=== PATIENT | female | born 1945 | race Caucasian/White ===

== ENCOUNTER 2024-06-14 13:13 | Outpatient (CLI) | payer MEDICARE | END 2024-06-14 13:14 | disposition home or self-care (01) | LOC: CSHULT 13:13 | PROVIDERS: ATTEND Family Medicine | DX: L98.492 Non-pressure chronic ulcer of skin of other sites with fat layer exposed (principal) | CPT/HCPCS: 93923 ==

== ENCOUNTER 2025-03-01 10:02 | Emergency (ER) | payer OTHER ==
[2025-03-01 10:37] LABS: #Basophils 0.03 10x3/uL (0.0-0.2); #Eosinophils 0.11 10x3/uL (0.0-0.5); #Monocytes 0.36 10x3/uL (0.0-1.1); #Neutrophils 3.63 10x3/uL (1.5-8.4); %Basophils 0.5 % (0.0-2.0); %Eosinophils 1.8 % (0.0-6.0); %Lymphocytes 31.6 % (18.0-47.0); %Monocytes 6.0 % (0.0-10.0); %Neutrophils 59.9 % (40.0-75.0); Hematocrit 41.8 % (34.9-44.5); Hemoglobin 13.9 g/dL (12.0-15.5); Mean Corpuscular Hemoglobin 29.2 pg (27.0-33.0); Mean Corpuscular Volume 87.8 fL (81.6-98.3); Platelet Count 168 10x3/uL (150-450); Red Blood Cell (RBC) Count 4.76 10x6/uL (3.90-5.03); White Blood Cell (WBC) Count 6.05 10x3/uL (3.5-10.5)
[2025-03-01 10:57] LABS: ALT (SGPT) Less than 7 U/L (Less than 34); AST (SGOT) 15 U/L (11-34); Albumin 3.7 g/dL (3.1-4.5); Alkaline Phosphatase 79 U/L (40-110); Anion Gap 12 mmol/L (10-20); BUN (Urea Nitrogen) 13 mg/dL (9.8-20.1); Bilirubin, Total 0.4 mg/dL (0.3-1.2); Calc. Creatinine Clearance 0 mL/min (70-130); Calcium 9.2 mg/dL (7.8-10.44); Carbon Dioxide 26 mmol/L (23-31); Chloride 103 mmol/L (98-107); Globulin 3.8 g/dL (2.4-3.5); Glucose 109 mg/dL (83-110); Lipase 25 U/L (8-78); Magnesium 2.1 mg/dL (1.6-2.6); Potassium 4.3 mmol/L (3.5-5.1); Sodium 137 mmol/L (136-145)
[2025-03-01] MEDS ORDERED: Iopamidol 300 61% 100 ML VIAL FS ONE ×2 (11:05→11:07)
[2025-03-01 11:52] LABS: Glucose, Urine (Dipstick) Normal (Negative); Leukocyte Negative (Negative); Protein, Urine (Dipstick) 15 mg/dl (Neg-Trace); Specific Gravity, Urine 1.010 (1.005-1.030)
[2025-03-01 12:11] LABS: Bacteria/HPF 1+ HPF (None Seen); CAUTI Indications for Culture Alt mental st,lethar; RBC/HPF None Seen HPF (0-3); Urine Culture Reflex No No; WBC/HPF 0-3 HPF (0-3)
[2025-03-01] MEDS ORDERED: Ketorolac Tromethamine 30 MG (1 mL) VIAL ONE (12:45)
== END 2025-03-01 15:44 | disposition home or self-care (01) ==
LOC: CSHERS 10:02
DX: K76.9 Liver disease, unspecified (principal); A31.0 Pulmonary mycobacterial infection; F17.210 Nicotine dependence, cigarettes, uncomplicated
CPT/HCPCS: 71260; 74177; 80053; 81001; 83605; 83690; 83735; 85025; 96374; 99284; J1885; J2270; Q9967